=== PATIENT | male | born 1950 | race Caucasian/White ===

== ENCOUNTER 2016-12-15 18:51 | Inpatient (IN) | payer OTHER ==
--- NOTE | 2016-12-15 18:54 | PDOC ---
History of Present Illness - History of Present Illness Initial Comments: 12/15/16 19:37 Patient is a 66 year old male with significant medical hx of liver transplant, HTN, DM, CVA, and CAD brought in by EMS who is presenting to the ED with left facial droop and slurred speech. The patient was last known well today at 6:15 PM. He was sitting on the computer and when he turned to say something to his , she noticed his speech was slurred with left sided facial droop. Patient denies any facial numbness or tingling. He was brought in and seen by ED physician at 6:50 PM. Denies headache, dizziness, weakness, numbness/tingling, or visual changes. PCP: Chito Martino MD <Kimmy Saeed - Last Filed: 12/15/16 20:53> <Divya Valera - Last Filed: 12/17/16 21:25> - General Chief Complaint: CVA/TIA Stated Complaint: STROKE Past History <Kimmy Saeed - Last Filed: 12/15/16 20:53> <Divya Valera - Last Filed: 12/17/16 21:25> - Past Medical History Allergies/Adverse Reactions: Allergies Allergy/AdvReac Type Severity Reaction Status Date / Time No Known Allergies Allergy Verified 12/15/16 18:54 Home Medications: Ambulatory Orders Alendronate Na [Fosamax] 70 mg PO DAILY 12/15/16 Aspirin [ASA -] 81 mg PO DAILY 12/15/16 Cyclosporine 75 mg PO DAILY 12/15/16 Glimepiride 2 mg PO DAILY 12/15/16 Metoprolol Tartrate [Lopressor -] 25 mg PO DAILY 12/15/16 Ursodiol 500 mg PO DAILY 12/15/16 Review of Systems - Review of Systems Comments:: 12/15/16 19:41 CONSTITUTIONAL: Absent: fever, chills, diaphoresis, generalized weakness, malaise, loss of appetite HEENT: Absent: rhinorrhea, nasal congestion, throat pain, throat swelling, difficulty swallowing, mouth swelling, ear pain, eye pain, visual changes CARDIOVASCULAR: Absent: chest pain, syncope, palpitations, irregular heart rate, lightheadedness , peripheral edema RESPIRATORY: Absent: cough, shortness of breath, dyspnea with exertion, orthopnea, wheezing, stridor, hemoptysis GASTROINTESTINAL: Absent: abdominal pain, abdominal distension, nausea, vomiting, diarrhea, constipation, melena, hematochezia GENITOURINARY: Absent: dysuria, frequency, urgency, hesitancy, hematuria, flank pain, genital pain MUSCULOSKELETAL: Absent: myalgia, arthralgia, joint swelling SKIN: Absent: rash, itching, pallor HEMATOLOGIC/IMMUNOLOGIC: Absent: easy bleeding, easy bruising, lymphadenopathy, frequent infections ENDOCRINE: Absent: unexplained weight gain, unexplained weight loss, heat intolerance, cold intolerance NEUROLOGIC: Present: slurred speech, left facial droop Absent: headache, focal weakness or paresthesia, dizziness, unsteady gait, seizure, mental status changes, bladder or bowel incontinence. PSYCHIATRIC: Absent: anxiety, depression, suicidal or homicidal ideation, hallucinations <Kimmy Saeed - Last Filed: 12/15/16 20:53> *Physical Exam - Vital Signs Last Vital Signs Temp Pulse Resp BP Pulse Ox 98.0 F 80 18 118/88 96 12/15/16 19:25 12/15/16 18:54 12/15/16 18:54 12/15/16 18:54 12/15/16 18:54 - Physical Exam Comments: 12/15/16 20:10 GENERAL: Well developed, well nourished. Awake and alert. No acute distress. HEENT: Normocephalic, atraumatic. PERRLA, EOMI. No conjunctival pallor. Sclera are non- icteric. Moist mucous membranes. Oropharynx is clear. NECK: Supple. Full ROM. No JVD. Carotid pulses 2+ and symmetric, without bruits. No thyromegaly. No lymphadenopathy. CARDIOVASCULAR: Regular rate and rhythm. No murmurs, rubs, or gallops. Distal pulses are 2+ and symmetric. PULMONARY: No evidence of respiratory distress. Lungs clear to auscultation bilaterally. No wheezing, rales or rhonchi. ABDOMINAL: Soft. Non-tender. Non-distended. No rebound or guarding. No organomegaly. Normoactive bowel sounds. MUSCULOSKELETAL: Normal range of motion at all joints. No bony deformities or tenderness. No CVA tenderness. EXTREMITIES: No cyanosis. No clubbing. No edema. No calf tenderness. SKIN: Warm and dry. Normal capillary refill. No rashes. No jaundice. NEUROLOGICAL: Alert, awake, appropriate. Slurred speech. Left sided facial droop. Passed swallow test. No extremity weakness. No numbness or tingling. Normal speech. Gait is normal without ataxia. PSYCHIATRIC: Cooperative. Good eye contact. Appropriate mood and affect. <Kimmy Saeed - Last Filed: 12/15/16 20:53> NIH Stroke Scale - Last Known Well Date/Time & Onset Date Last Known Well: 12/15/16 Time Last Known Well: 18:15 - Initial Evaluation Level of consciousness: Alert Ask patient the month and their age: Answers both correctly Ask patient to open & close eyes; make fist and let go: Obeys both correctly Best gaze (horizontal eye movement): Normal Visual field testing: No visual field loss Facial paresis (Show teeth/raise eyebrows/close eyes tight): Minor paralysis ( flattened nasolabial fold, asymmetry on smiling) Motor Function: Left Arm: Normal Motor Function: Right Arm: Normal (extends arm 90 (or 45) degrees for 10 seconds without drift Motor Function: Left Leg: Normal (extends leg 30 degrees for 5 seconds without drift) Motor Function: Right Leg: Normal (extends leg 30 degrees for 5 seconds without drift) Limb Ataxia: No ataxia Sensory(Use pinprick test arms,legs,trunk,face/side to side): Normal Best language (Describe picture, name items, read sentences): No Aphasia Dysarthria (read several words): Mild to moderate slurring of words Extinction and Inattention: No abnormality - Total Score NIH Stroke Scale Score: 2 <Divya Valera - Last Filed: 12/17/16 21:25> tPA Exclusion Checklist 0-3hr - Time Elapsed Date last known well: 12/15/16 Time last known well: 18:15 Elaspsed time: 2 Day(s) and 3 Hour(s) and 9 Minutes - Thrombolytic Therapy Candidate Is the patient eligible for Thrombolytic Therapy?: Yes - Exclusion Criteria 0-3hr SBP greater than 185 or DBP greater than 110mmHg despite tx: No Recent IC/spinal surgery,head trauma or stroke w/in last 3mo: No Hx of previous IC hemorrhage, IC neoplasm, AVM or aneurysm: No Active internal bleeding: No Blding diathesis(low plt ct, inc PTT,INR>1.7 or use of NOAC): No Symptoms suggest subarachnoid hemorrhage: No CT demonstrates multilobar infarct(>1/3 cerebral hemiphere): No Arterial puncture at noncompressible site in previous 7 days: No Blood glucose concentration less than 50mg/dL (2.7mmol/L): No - Relative Exclusion Criteria 0-3h Life expectancy <1yr/severe co-morbid illness/INVESTIGATIVE AGENT on admit: No : No Patient/family refused: No Rapid improvement: Yes Stroke severity too mild: Yes Recent acute CO (w/in previous 3 months): No Seizure at onset with postictal residual neuro impairments: No Major surgery or serious trauma w/in previous 14 days: No Recent GI or hemorrhage (w/in previous 21 days): No - Ineligibility reason(s) Reasons No tPA given: See reason(s) noted above (Dr Summers,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 His was with him first on the computer and when he went to turn to speak to her, his words were slurred. He is alert and oriented 3, moving all his extremities purposefully. NIH stroke scale is 2. Due to his slight word slurring and mild facial droop -. I asked the patient how speech was and He said it was slightly improved from an hour ago -tpa obtainbed from [facility] 12/15/16 20:05 Dr. 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 and no TPA will be given 12/17/16 21:24 <Divya Valera - Last Filed: 12/17/16 21:25> Discharge Disposition <Kimmy Saeed - Last Filed: 12/15/16 20:53> - Discharge Dispostion Admit: Yes <Divya Valera - Last Filed: 12/17/16 21:25> - Diagnosis Facial droop, Slurred speech - Referrals ED Treatment Course - LABORATORY CBC & Chemistry Diagram: 12/15/16 19:10 12/15/16 19:10 - RADIOLOGY Radiograph Interpretation: 12/15/16 19:29 Spreader Operator: ([email or web address]) Report Date: 12/15/2016 18:55:00 Report Status: Addendum Begin of Report Content Referring Physician: Divya Hussein Stroke protocol results discussed with Dr. Valera at 7:11pm. THIS DOCUMENT HAS BEEN ELECTRONICALLY SIGNED Abdulkadir Askew MD 12/15/2016 19:15 EST M.D. Please call Imaging Mobile Security Specialist [phone] with questions. PREVIOUS REPORT: Referring Physician: Divya Valera Patient Name: Nitish Hussein THIS IS A PRELIMINARY REPORT FROM [facility]OS[facility] MANAGER EXAM: CT head without contrast IMAGES: 73 DATE OF EXAM: 2016-12-15 18:55:46.0 REASON FOR EXAM: Rule out stroke COMPARISON: None. FINDINGS: There is cerebral atrophy. Chronic microvascular ischemic changes are noted. There are small chronic appearing right parietal and posterior parietal CVAs. No acute intracranial hemorrhage or acute infarction. The visualized aspect of the paranasal sinuses and mastoid air cells are remarkable for minimal right ethmoid chronic sinus changes. No acute fracture. THIS DOCUMENT HAS BEEN ELECTRONICALLY SIGNED Abdulkadir Askew MD 12/15/2016 19:12 EST M.D. Please call Imaging Mobile Security Specialist [phone] with questions. End of Report Content Spreader Operator: ([email or web address]) Report Date: 12/15/2016 18:55:00 Report Status: Preliminary Begin of Report Content Referring Physician: Divya Valera Patient Name: Nitish Hussein THIS IS A PRELIMINARY REPORT FROM [facility]NAGER EXAM: CT head without contrast IMAGES: 73 DATE OF EXAM: 2016-12-15 18:55:46.0 REASON FOR EXAM: Rule out stroke COMPARISON: None. FINDINGS: There is cerebral atrophy. Chronic microvascular ischemic changes are noted. There are small chronic appearing right parietal and posterior parietal CVAs. No acute intracranial hemorrhage or acute infarction. The visualized aspect of the paranasal sinuses and mastoid air cells are remarkable for minimal right ethmoid chronic sinus changes. No acute fracture. THIS DOCUMENT HAS BEEN ELECTRONICALLY SIGNED Abdulkadir Askew MD 12/15/2016 19:12 EST M.D. Please call Imaging Mobile Security Specialist [phone] with questions. End of Report Content - Consult/PCP Time Called: 19:30 (Requested aspirin and lipitor to be given.) Case discussed with personal care physician: Annie Abraham <Kimmy Saeed - Last Filed: 12/15/16 20:53> - LABORATORY CBC & Chemistry Diagram: 12/17/16 05:35 12/17/16 05:35 <Divya Valera - Last Filed: 12/17/16 21:25> Attestations - Attestations 12/15/16 19:31 Documentation prepared by Kimmy Saeed, acting as medical assistant cardiology for Divya Valera MD. <Kimmy Saeed - Last Filed: 12/15/16 20:53>
[2016-12-15] MEDS ORDERED: SODIUM CHLORIDE 1,000 ML IV SCH ×2 (19:00→21:00)
[2016-12-15 19:33] LABS: BASOPHIL 1.4 % (0-2.0); EOSINOPHIL 7.5 % (0-4.5); MCH 31.9 pg (25.7-33.7); MCHC 33.5 g/dl (32.0-35.9); MEAN CELL VOLUME 95.1 fl (80-96); MEAN PLT VOLUME 9.4 fl (7.5-11.1); NEUTROPHILS 40.3 % (42.8-82.8); PLATELET COUNT 201 K/MM3 (134-434); RDW 12.8 % (11.9-15.9); WHITE BLOOD COUNT 10.6 K/mm3 (4.0-10.0)
[2016-12-15] MEDS ORDERED: ATORVASTATIN CA 80 MG TABLET (FP) PO ONE (19:33)
[2016-12-15] MEDS ORDERED: ASPIRIN 81 MG CHEWABLE TABLETS PO ONE (19:33)
[2016-12-15] MEDS ORDERED: ASPIRIN 81 MG CHEWABLE TABLETS ONE (19:35)
[2016-12-15] MEDS ORDERED: ATORVASTATIN CA 80 MG TABLET (FP) ONE (19:35)
[2016-12-15 19:47] LABS: INR 1.04 (0.82-1.09); PROTHROMBIN TIME (PATIENT) 11.5 SEC (9.98-11.88)
[2016-12-15] MEDS ORDERED: ALTEPLASE 100MG 100 MG IVPB ONE (19:59)
[2016-12-15 20:00] LABS: ALBUMIN 3.7 g/dl (3.4-5.0); ALK PHOS 58 U/L (45-117); ANION GAP 8 (8-16); BILIRUBIN,TOTAL 0.6 mg/dL (0.2-1.0); CALCIUM 9.2 mg/dL (8.5-10.1); CHOLESTEROL 164 mg/dL (50-200); CO2 28 mmol/L (21-32); COCKROFT - GAULT 68.98; CREATININE 1.1 mg/dL (0.7-1.3); GLUCOSE,RANDOM 211 mg/dL (74-106); LDL CHOLESTEROL (ONLY SJRH) 81 mg/dL (5-100); SGOT/AST 23 U/L (15-37); SGPT/ALT 21 U/L (12-78); TOT PROT 7.2 g/dl (6.4-8.2); TROPONIN I < 0.02 ng/ml (0.00-0.05)
[2016-12-15] MEDS ORDERED: predniSONE 20 MG TABLET (UD) PO ONE (20:07)
[2016-12-15] MEDS ORDERED: predniSONE 20 MG TABLET (UD) ONE (20:14)
--- NOTE | 2016-12-15 20:22 | CON.NEURO ---
Consult - Alcohol/Substance Use Hx Alcohol Use: No - Smoking History Smoking history: Never smoked Home Medications - Allergies Allergies/Adverse Reactions: Allergies Allergy/AdvReac Type Severity Reaction Status Date / Time No Known Allergies Allergy Verified 12/15/16 18:54 Physical Exam-Neuro Vital Signs: Vital Signs Temperature 98.0 F 12/15/16 19:25 Pulse Rate 80 12/15/16 18:54 Respiratory Rate 18 12/15/16 18:54 Blood Pressure 160/97 12/15/16 20:11 O2 Sat by Pulse Oximetry (%) 96 12/15/16 18:54 Labs: CBC, BMP 12/15/16 19:10 12/15/16 19:10 INR, PTT INR 1.04 (0.82-1.09) 12/15/16 19:10 NIH Stroke Scale - Total Score NIH Stroke Scale Score: 0 Imaging - Results Cat Scan: Report Reviewed Assessment/Plan cc left face droopiness and slurring of speech 66 year old male history of liver transplant , htn dm cad and is taking aspirin , statin at home. He was working on computer and noticed that there was left facial droopiness and voice was slurred . He denies any arm weakness or numbness, no headache . He is able to talk and understand. no seizures no fever or trauma or cancer. Past Medical History , medication and allergies are reviewed in chart Neurological Exam BP was normal alert oriented x 3, speech is slurred there is lmn type of facial palsy, and eomi no motor weakness or sensory loss Ct showed white matter disease and old ischemic lesion ( clinically never had stroke ASSESSMENT 66 year old male came with left facial droopiness and slurring of speech and found to have left LMN type of facial palsy , bp was normal. there is no other focal neuro sy mptoms and exam is normal. nih scor ei s2 UNLIKELY TO BE STROKE Plan -- suggest to give prednisone 40 mg po qd for five days and valtrex 1 gm tid for seven days - side effect of steroid discussed with patient - unlikely to be stroke , discussed with family and ed doctor and not a candidate for tpa -- suggest to do mri of brain to rule out ischemic stroke -- follow up with me outpatient once mri is negative thanks for consult Epifanio Lux MD Neurology Attending
--- NOTE | 2016-12-15 20:33 | PN ---
<Chaitanya Armendariz - Last Filed: 12/15/16 20:33> Teaching Attending Note Name of Resident: Tracy Almazan ATTENDING PHYSICIAN STATEMENT I saw and evaluated the patient. I reviewed the resident's note and discussed the case with the resident. I agree with the resident's findings and plan as documented. SUBJECTIVE: OBJECTIVE: ASSESSMENT AND PLAN: <Jamal Randall - Last Filed: 12/15/16 21:56> Teaching Attending Note ATTENDING PHYSICIAN STATEMENT I saw and evaluated the patient. I reviewed the resident's note and discussed the case with the resident. I agree with the resident's findings and plan as documented. SUBJECTIVE: The patient is a 66 year old male with a significant past medical history of liver transplant, HTN, diabetes, CVA, and CAD, who presented to the emergency department today with left facial droop and slurred speech since 1849. Patient denied any facial numbness, tingling, dizziness, or visual changes. Patients had noticed slurred speech. In ED patient was found to have a stroke scale score of 2. OBJECTIVE: Last Vital Signs 3 Temp Pulse Resp BP Pulse Ox 98.0 F 80 18 160/97 96 12/15/16 19:25 12/15/16 18:54 12/15/16 18:54 12/15/16 20:11 12/15/16 18:54 Physical Exam: GEN: Awake Alert and [place] x3 NAD HEENT: NCAT, PERRL CARD: RRR, S1 S2 RESP: CTAB ABD: NT, BWS x4 EXT: - CCE NUERO: (+) Cranial nerves 2-12 intact left facial droop Labs: CBCD 3 WBC 10.6 K/mm3 (4.0-10.0) H 12/15/16 19:10 RBC 4.44 M/mm3 (4.00-5.60) 12/15/16 19:10 Hgb 14.1 GM/dL (11.7-16.9) 12/15/16 19:10 Hct 42.2 % (35.4-49) 12/15/16 19:10 MCV 95.1 fl (80-96) 12/15/16 19:10 MCHC 33.5 g/dl (32.0-35.9) 12/15/16 19:10 RDW 12.8 % (11.9-15.9) 12/15/16 19:10 Plt Count 201 K/MM3 (134-434) 12/15/16 19:10 MPV 9.4 fl (7.5-11.1) 12/15/16 19:10 CMP 3 Sodium 143 mmol/L (136-145) 12/15/16 19:10 Potassium 3.5 mmol/L (3.5-5.1) 12/15/16 19:10 Chloride 107 mmol/L (98-107) 12/15/16 19:10 Carbon Dioxide 28 mmol/L (21-32) 12/15/16 19:10 Anion Gap 8 (8-16) 12/15/16 19:10 BUN 28 mg/dL (7-18) H 12/15/16 19:10 Creatinine 1.1 mg/dL (0.7-1.3) 12/15/16 19:10 Creat Clearance w eGFR > 60 (>60) 12/15/16 19:10 Calcium 9.2 mg/dL (8.5-10.1) 12/15/16 19:10 Total Bilirubin 0.6 mg/dL (0.2-1.0) 12/15/16 19:10 AST 23 U/L (15-37) 12/15/16 19:10 ALT 21 U/L (12-78) 12/15/16 19:10 Alkaline Phosphatase 58 U/L (45-117) 12/15/16 19:10 Total Protein 7.2 g/dl (6.4-8.2) 12/15/16 19:10 Albumin 3.7 g/dl (3.4-5.0) 12/15/16 19:10 Imaging: EXAM: CT head without contrast IMAGES: 73 DATE OF EXAM: 2016-12-15 18:55:46.0 REASON FOR EXAM: Rule out stroke COMPARISON: None. FINDINGS: There is cerebral atrophy. Chronic microvascular ischemic changes are noted. There are small chronic appearing right parietal and posterior parietal CVAs. No acute intracranial hemorrhage or acute infarction. The visualized aspect of the paranasal sinuses and mastoid air cells are remarkable for minimal right ethmoid chronic sinus changes. No acute fracture. THIS DOCUMENT HAS BEEN ELECTRONICALLY SIGNED Abdulkadir Askew MD EXAM: ECG. Impression: Vent rate at 78 bpm. Normal sinus rhythm. Normal ECG. ASSESSMENT AND PLAN: The patient is a 66 year old male with a significant past medical history of liver transplant, HTN, diabetes, CVA, and CAD, who presented to the emergency department today with left facial droop and slurred speech since, found to have possible yoder's palsy being admitted for stroke rule out 1. CVA TIA - Continue aspirin - Check lipid panel - Start statin - Follow up A1C - Check tsh - Check B12 - MRI brain without contrast - ECHO - Carotid ultrasound - ECG - Troponins - Monitor on Tele 2. Yoder's Palsy - Continue with Prednisone 60 mg daily - Continue Valacyclovir 3. Diabetes - Sliding scale - Hold glimepiride 4. History of liver transplant - Continue Cyclosporine - Check levels 5. CAD - Continue home medications 6. DVT PPX-low risk - SCDs Place in stroke tele. Documentation prepared by Jamal Randall, acting as medical laboratory assistant for Dr. Chaitanya Armendariz MD
[2016-12-15 20:55] LABS: URINE APPEARANCE CLEAR; URINE BILIRUBIN NEGATIVE (NEGATIVE); URINE COLOR STRAW; URINE GLUCOSE (UA) 3+ (NEGATIVE); URINE KETONE NEGATIVE (NEGATIVE); URINE LEUK ESTERASE NEGATIVE (NEGATIVE); URINE NITRITE NEGATIVE (NEGATIVE); URINE PROTEIN NEGATIVE (NEGATIVE); URINE UROBILINOGEN NEGATIVE E.U./dl (0.2-1.0)
[2016-12-15 21:00] LABS: URINE BLOOD 1+ (NEGATIVE); URINE MUCUS RARE; URINE RBC 5 /hpf (0-3); URINE WBC <1 /hpf (3-5)
--- NOTE | 2016-12-15 21:45 | HP ---
CHIEF COMPLAINT: left facial droop PCP: Chito Martino MD HISTORY OF PRESENT ILLNESS: 66 year old male with PMH of NIDDM, HTN, CAD s/p many year sago, liver transplant (due to hepatitis C infection in ?, on daily cyclosporine), presents to ER with family due to left sided facial droop and aphasia that started at 6:15pm while he was sitting at computer. Patient denies headache, dysphagia, tingling, numbness, extremity weakness, unsteady gait. He also denies chest pain, palpitations, sob. Patient does mention that he was been having upper respiratory symptoms the past two weeks, including nasal congestion , cough, no fever. He did not see his primary for this. Patient denies previous tick bites or travel. He was brought in and seen by ED physician at 6:50 PM. Stroke protocol was activated and head CT was done. Patient was seen neurologist in the ED, he did not feel this was a stroke, alteplase was not given. Full dose aspirin was given. Patient was given steroids and valacyclovir for treatment of Hall/s palsy. Recent Travel: no PAST MEDICAL HISTORY: HEpC, HTN, DM, CAD PAST SURGICAL HISTORY: Liver transplant, splenectomy, stent Social History: Smoking:no Alcohol:no Drugs: no Family History: Allergies No Known Allergies Allergy (Verified 12/15/16 18:54) HOME MEDICATIONS: Home Medications Medication Instructions Recorded Alendronate Na [Fosamax] 70 mg PO DAILY 12/15/16 Aspirin [ASA -] 81 mg PO DAILY 12/15/16 Cyclosporine 75 mg PO DAILY 12/15/16 Glimepiride 2 mg PO DAILY 12/15/16 Metoprolol Tartrate [Lopressor -] 25 mg PO DAILY 12/15/16 Ursodiol 500 mg PO DAILY 12/15/16 REVIEW OF SYSTEMS CONSTITUTIONAL: Absent: fever, chills, diaphoresis, generalized weakness, malaise, loss of appetite, weight change HEENT: Positive: rinorrhea, nasal congestion Absent: throat pain, throat swelling, difficulty swallowing, mouth swelling, ear pain, eye pain, visual changes CARDIOVASCULAR: Absent: chest pain, syncope, palpitations, irregular heart rate, lightheadedness , peripheral edema RESPIRATORY: Positive: cough Absent: shortness of breath, dyspnea with exertion, orthopnea, wheezing, stridor, hemoptysis GASTROINTESTINAL: Absent: abdominal pain, abdominal distension, nausea, vomiting, diarrhea, constipation, melena, hematochezia GENITOURINARY: Absent: dysuria, frequency, urgency, hesitancy, hematuria, flank pain, genital pain MUSCULOSKELETAL: Absent: myalgia, arthralgia, joint swelling, back pain, neck pain SKIN: Positive: itching anterior chest Absent: rash, pallor HEMATOLOGIC/IMMUNOLOGIC: Absent: easy bleeding, easy bruising, lymphadenopathy, frequent infections ENDOCRINE: Absent: unexplained weight gain, unexplained weight loss, heat intolerance, cold intolerance NEUROLOGIC: POsitiveL left facal droop, Absent: headache, focal weakness or paresthesias, dizziness, unsteady gait, seizure, mental status changes, bladder or bowel incontinence PSYCHIATRIC: Absent: anxiety, depression, suicidal or homicidal ideation, hallucinations. PHYSICAL EXAMINATION Vital Signs - 24 hr 12/15/16 12/15/16 12/15/16 18:54 19:25 20:11 Temperature 98.0 F Pulse Rate 80 Respiratory 18 Rate Blood Pressure 118/88 Blood Pressure 160/97 [Right Arm] O2 Sat by Pulse 96 Oximetry (%) GENERAL: Awake, alert, and fully oriented, frustrated due to difficulty speaking HEAD: Normal with no signs of trauma. EYES: Pupils equal, round and reactive to light, extraocular movements intact, sclera anicteric, conjunctiva clear. No lid lag. EARS, NOSE, THROAT:oropharynx clear without exudates. Moist mucous membranes. NECK: Normal range of motion, supple without lymphadenopathy, JVD, or masses. LUNGS: Breath sounds equal, clear to auscultation bilaterally. No wheezes, and no crackles. No accessory muscle use. HEART: Regular rate and rhythm, normal S1 and S2 without murmur, rub or gallop. ABDOMEN: Soft, nontender, not distended, normoactive bowel sounds, no guarding, no rebound, no masses. No hepatomegaly or splenomegaly. MUSCULOSKELETAL: Normal range of motion at all joints. No bony deformities or tenderness. No CVA tenderness. UPPER EXTREMITIES: 2+ pulses, warm, well-perfused. No cyanosis. No clubbing. No peripheral edema. LOWER EXTREMITIES: 2+ pulses, warm, well-perfused. No calf tenderness. No peripheral edema. NEUROLOGICAL: Cranial nerves II-XII intact. Aphasia, left facial droop, left tongue deviation. Normal gait. motor strength 5/5 all extremities, sensation intact , left eyelid raise more weak on the left when compared tot he right; i was able to open left eyelid when told to close eyes PSYCHIATRIC: Cooperative. Good eye contact. Appropriate mood and affect. SKIN: Warm, dry, normal turgor, no rashes or lesions noted, normal capillary refill. CBCD WBC 10.6 K/mm3 (4.0-10.0) H 12/15/16 19:10 RBC 4.44 M/mm3 (4.00-5.60) 12/15/16 19:10 Hgb 14.1 GM/dL (11.7-16.9) 12/15/16 19:10 Hct 42.2 % (35.4-49) 12/15/16 19:10 MCV 95.1 fl (80-96) 12/15/16 19:10 MCHC 33.5 g/dl (32.0-35.9) 12/15/16 19:10 RDW 12.8 % (11.9-15.9) 12/15/16 19:10 Plt Count 201 K/MM3 (134-434) 12/15/16 19:10 MPV 9.4 fl (7.5-11.1) 12/15/16 19:10 CMP Sodium 143 mmol/L (136-145) 12/15/16 19:10 Potassium 3.5 mmol/L (3.5-5.1) 12/15/16 19:10 Chloride 107 mmol/L (98-107) 12/15/16 19:10 Carbon Dioxide 28 mmol/L (21-32) 12/15/16 19:10 Anion Gap 8 (8-16) 12/15/16 19:10 BUN 28 mg/dL (7-18) H 12/15/16 19:10 Creatinine 1.1 mg/dL (0.7-1.3) 12/15/16 19:10 Creat Clearance w eGFR > 60 (>60) 12/15/16 19:10 Random Glucose 211 mg/dL (74-106) H 12/15/16 19:10 Calcium 9.2 mg/dL (8.5-10.1) 12/15/16 19:10 Total Bilirubin 0.6 mg/dL (0.2-1.0) 12/15/16 19:10 AST 23 U/L (15-37) 12/15/16 19:10 ALT 21 U/L (12-78) 12/15/16 19:10 Alkaline Phosphatase 58 U/L (45-117) 12/15/16 19:10 Total Protein 7.2 g/dl (6.4-8.2) 12/15/16 19:10 Albumin 3.7 g/dl (3.4-5.0) 12/15/16 19:10 CARDIAC ENZYMES Creatine Kinase 154 IU/L (39-308) 12/15/16 19:10 Troponin I < 0.02 ng/ml (0.00-0.05) 12/15/16 19:10 Imaging: EXAM: CT head without contrast IMAGES: 73 DATE OF EXAM: 2016-12-15 18:55:46.0 REASON FOR EXAM: Rule out stroke COMPARISON: None. FINDINGS: There is cerebral atrophy. Chronic microvascular ischemic changes are noted. There are small chronic appearing right parietal and posterior parietal CVAs. No acute intracranial hemorrhage or acute infarction. The visualized aspect of the paranasal sinuses and mastoid air cells are remarkable for minimal right ethmoid chronic sinus changes. No acute fracture. THIS DOCUMENT HAS BEEN ELECTRONICALLY SIGNED Abdulkadir Askew MD EXAM: ECG. Impression: Vent rate at 78 bpm. Normal sinus rhythm. Normal ECG. ASSESSMENT/PLAN: 66 year old male with HTN, DM, CAD, presents to ER with left facial droop and aphasia. Neurology assessed in ER, patient likely to have Hall's palsy vs stroke. Patient admitted to telemetry, stroke protocol initiated. #Left facial droop secondary to Hall's Palsy: -prednisone 40mg po daily x 5 days -valacyclovir 1,000mg tid #r/o stroke/TIA -stroke protocol initiated/order set used -stroke head CT -aspirin 325mg po ; then 81mg daily -atorvastatin 80mg po HS daily -brain MRI without contrast -carotid doppler -echocardiogram -neuro checks -speech eval -lipid panel, tsh -telemetry -physical therapy -neurology consult #HTN: -metoprolol 25mg daily #diabetes mellitus type II -insulin SS -bgm achs -hemoglobin A1C #S/p liver transplant: -on cyclosporine 500mg qd -chk levels FEN: Fluids: Electrolytes: Diet: diabetic VTE: ambulating; apply scds; reevaluate need for VTE prophylaxis tomorrow Disposition: admit to tele; f/u studies Problem List - Problem (1) Facial droop Code(s): R29.810 - FACIAL WEAKNESS (2) Slurred speech Code(s): R47.81 - SLURRED SPEECH (3) Hall's palsy Code(s): G51.0 - HALL'S PALSY (4) HTN (hypertension) Code(s): I10 - ESSENTIAL (PRIMARY) HYPERTENSION (5) Diabetes 1.5, managed as type 2 Code(s): E10.9 - TYPE 1 DIABETES MELLITUS WITHOUT COMPLICATIONS (6) CAD (coronary artery disease) Code(s): I25.10 - ATHSCL HEART DISEASE OF [place] CORONARY ARTERY W/O ANG PCTRS (7) Hx of liver transplant Code(s): Z94.4 - LIVER TRANSPLANT STATUS Visit type - Emergency Visit Emergency Visit: Yes ED Registration Date: 12/15/16 Care time: The patient presented to the Emergency Department on the above date and was hospitalized for further evaluation of their emergent condition. - New Patient This patient is new to me today: Yes Date on this admission: 12/16/16 - Critical Care Critical Care patient: No
[2016-12-15] MEDS ORDERED: valACYclovir HCL 1000 MG TABLET PO SCH (22:00)
[2016-12-15] MEDS: cycloSPORINE MICROEMULSION (MODIFIED) 25 MG CAPSULE PO SCH ×2 (22:01→22:02)
[2016-12-15] MEDS: valACYclovir HCL 500 MG TABLET (FP) PO SCH (22:02)
[2016-12-16] MEDS: INSULIN SLIDING SCALE (NOVOLOG) 1 VIAL SQ SCH ×5 (01:49→21:08)
[2016-12-16] MEDS: valACYclovir HCL 500 MG TABLET (FP) PO SCH ×3 (06:20→21:09)
[2016-12-16 06:33] LABS: BASOPHIL 0.3 % (0-2.0); MCH 31.8 pg (25.7-33.7); MCHC 33.3 g/dl (32.0-35.9); MEAN CELL VOLUME 95.5 fl (80-96); MEAN PLT VOLUME 9.3 fl (7.5-11.1); NEUTROPHILS 91.9 % (42.8-82.8); PLATELET COUNT 219 K/MM3 (134-434); RDW 12.6 % (11.9-15.9); WHITE BLOOD COUNT 15.3 K/mm3 (4.0-10.0)
[2016-12-16 06:53] LABS: CALCIUM 8.7 mg/dL (8.5-10.1); COCKROFT - GAULT 68.98; CREATININE 1.1 mg/dL (0.7-1.3)
[2016-12-16 07:01] LABS: THYROID STIMULATING HORMONE 2.39 uIU/ml (0.358-3.74)
[2016-12-16] MEDS ORDERED: predniSONE 20 MG TABLET (UD) PO SCH (10:00)
[2016-12-16] MEDS ORDERED: ASPIRIN 81 MG CHEWABLE TABLETS PO SCH (10:00)
[2016-12-16] MEDS ORDERED: URSODIOL 300 MG PO SCH (10:00)
[2016-12-16] MEDS: METOPROLOL TARTRATE 25 MG TABLET (FP) PO SCH (10:18)
[2016-12-16] MEDS ORDERED: METOPROLOL TARTRATE 25 MG TABLET (FP) ONE (10:19)
[2016-12-16] MEDS ORDERED: predniSONE 20 MG TABLET (UD) ONE (10:19)
[2016-12-16] MEDS ORDERED: ASPIRIN 81 MG CHEWABLE TABLETS ONE (10:19)
--- NOTE | 2016-12-16 10:49 | CONSULT ---
Admitting History and Physical - Primary Care Physician PCP: Tracy Almazan - Admission History of Present Illness: Per Neurology: "BP was normal alert oriented x 3, speech is slurred there is lmn type of facial palsy, and eomi no motor weakness or sensory loss Ct showed white matter disease and old ischemic lesion ( clinically never had stroke ASSESSMENT 66 year old male came with left facial droopiness and slurring of speech and found to have left LMN type of facial palsy , bp was normal. there is no other focal neuro sy mptoms and exam is normal. nih scor ei s2 UNLIKELY TO BE STROKE" History Source: Patient, Family Member, Medical Record Limitations to Obtaining History: No Limitations - Smoking History Smoking history: Never smoked - Alcohol/Substance Use Hx Alcohol Use: No History - Admission Reason For Visit: FACIAL DROOP, SLURRED SPEECH - Diagnostics CT Scan: Report Reviewed (There is cerebral atrophy. Chronic microvascular ischemic changes are noted. There are small chronic appearing right parietal and posterior parietal CVAs. No acute intracranial hemorrhage or acute infarction.) - General Mental Status: Alert and Oriented, Awake and Alert, Able to Follow Commands Ability to Follow Directions: Excellent Head/Neck Control: WFL - Hearing Hearing: Functional Speech Evaluation - Communication Primary Language: MAORI Oral Expression Ability: Yes: Mild Impairment - Speech Production Able to Make Needs Known: Yes: WNL Intelligibility: Yes: Mildly Impaired - Speech Characteristics Voice Loudness: Normal Voice Pitch: Yes: Normal Voice Phonatory-based Quality: Yes: Normal Speech Pattern: Normal Speech Clarity: < 100% Nasal Resonance: Normal Articulation: Yes: Imprecise (slight) Rate of Speech: Intact - Language/Auditory Comprehension Follows: Yes: 2 Stage Simple Commands - Language/Verbal Expression Able to Respond to Simple Queries: Yes: WNL Able to Communicate Wants and Needs: Yes: WNL Functional Communication Status: Yes: WNL - Swallow Evaluation/Bedside Assessment Current Nutritional Intake: NPO Oral Secretions: Yes: Drooling (on left,when drinks from cup. Eliminated with straw drinking.) Dentition: Yes: Adequate Facial Symmetry at Rest: Facial Droop Left Facial Symmetry on Retraction: Facial Droop Left Sensation: Normal Jaw Position: Closed at Rest Against Resistance Opening: Normal Against Resistance Closing: Normal Pucker Lips: Droops Left Smile: Droops Left Lingual Movement: Deviates Left (? Not definitive) Lingual Movement Characteristics: Normal Velopharyngeal Movement: Normal Laryngeal Elevation: WFL Laryngeal Movement: Able to Palpate Rate of Intake: WFL Bolus Size: WFL Chewing: WFL Oral Prep Time: WFL A-P Transit: WFL Pocketing: None Timing of Swallow: WFL Coughing/Throat Clear: Yes (continuous thin liquid via straw) Recommendations - Speech Evaluation, Impression/Plan Impression: Pr is o x 3 and a good historian. No Aphasia or Dysarthria. Complete Left facial weakness. Dx of [place]'s Palsy. MRI pending. Tongue may be deviating to left?? upon protusion. Once I educated pt about this, he seemed to be correcting to midline? Clinical assessment not definitive. Language/ cognition intact. No hemianopsia. Able to read orally. Additionally, pt coughs/ clears throat responsively on continuous drinking of water from a straw, not noted without po intake. However, pt and report h/o throat clearing/cough/ phlegm production. PNA x 5 yrs ago - Dysphagia Impressions/Plan Dysphagia Impressions: Risk of Aspiration *Silent aspiration: cannot be R/O at bedside Recommendations: Modified Barium Swallow, Other (Pending MRI, r/o CVA.) - Recommendations Diet Consistency: Regular Medication Administration: Whole with water Liquids: Thin Liquids (single sips via straw. If cough,hold po until MBS)
[2016-12-16] MEDS ORDERED: PT OWN MED DRAWER 7, Y5N ONE ×2 (11:04→20:52)
[2016-12-16] MEDS: cycloSPORINE MICROEMULSION (MODIFIED) 25 MG CAPSULE PO SCH ×2 (11:06→21:10)
--- NOTE | 2016-12-16 11:44 | EKG ---
Test Reason : Blood Pressure : / mmHG Vent. Rate : 078 BPM Atrial Rate : 078 BPM P-R Int : 180 ms QRS Dur : 102 ms QT Int : 416 ms P-R-T Axes : 052 -03 039 degrees QTc Int : 474 ms NORMAL SINUS RHYTHM NORMAL ECG NO PREVIOUS ECGS AVAILABLE Confirmed by JOÃO NOGUERA MD ([id number]) on 12/16/2016 11:43:54 AM Referred By: Confirmed By:JOÃO NOGUERA MD
[2016-12-16] MEDS: URSODIOL 300 MG CAPSULE PO SCH (12:02)
[2016-12-16 16:30] VITALS: BMI 21.5
--- NOTE | 2016-12-16 16:36 | PN ---
Teaching Attending Note Name of Resident: Deena Kim ATTENDING PHYSICIAN STATEMENT I saw and evaluated the patient. I reviewed the resident's note and discussed the case with the resident. I agree with the resident's findings and plan as documented. SUBJECTIVE:continues to have slurred speech and L facial droop. was noticed by the when about to eat dinner. pt unaware if started earlier. has cough, rhinorrhea and sinus congestion 2 weeks earlier which self resolved and did not see PMD for. no similar episodes in the past. believes to have had cold sores in the past and chicken pox as a child but no shingles. denies CP, SOB,fever, chills, N/V/C/D OBJECTIVE: Last Vital Signs Temp Pulse Resp BP Pulse Ox 98.2 F 91 H 20 133/86 100 12/16/16 06:36 12/16/16 10:00 12/16/16 10:00 12/16/16 10:00 12/16/16 10:00 General NAD, slurred speech CV S1 S2 RRR no murmur/rub/gallop Lungs CTA B/l no wheezing/rales/rhonchi Neuro CN VII palsy on the L with tongue deviation to the R . strength and sensation grossly intact in all 4 extremities. no dysmetria negative heel to alvarado ASSESSMENT AND PLAN: 66yo M with PMH liver transplant 20 years ago, HTN, DM, and CAD presented to the ER with slurred speech and facial droop. Code Garcia activated in the ER 1. Facial droop- Eagle palsy vs CVA. NIHSS 2 on presentation. not given TPA per neuro as not believed to be CVA. initial CT negative, carotid doppler negative. MRI brain done today and result pending. started on steroids and valtrex for possible [place] palsy. short steroid course. will monitor for improvement. started on plavix. PT and swallow eval. will need speech therapy as outpatient. Neuro on board. cont asa 2. Luekocytosis- possible steroid effect. afebrile. no signs of infection. will hold abx therapy at this time 3. HTN- elevated. re-start metoprolol 4. Liver transplant- on cyclosporine. no complications since transplant. no OI. 5. DVT ppx- EAM
--- NOTE | 2016-12-16 16:57 | PN ---
Physical Exam: SUBJECTIVE: Patient seen and examined by me at bedside. Patient continues to have slurred speech but states it's much better now. On further questioning patient does report having cold symptoms about two weeks ago including cough, runny nose and congestion. Symptoms resolved on their own. Otherwise, patient denies fever, chills, nausea, vomiting, abdominal pain, chest pain, diarrhea, constipation, shortness of breath, palpitations. OBJECTIVE: Vital Signs Period Temp Pulse Resp BP Sys/Fraga Pulse Ox Last 24 Hr 98.0 F-98.2 F 71-98 16-20 120-151/68-97 95-100 GENERAL: The patient is awake, alert, and fully oriented, in no acute distress. HEAD: Normal with no signs of trauma. EYES: PERRL, extraocular movements intact, sclera anicteric, conjunctiva clear. ENT: oropharynx clear without exudates, moist mucous membranes. LUNGS: Breath sounds equal, clear to auscultation bilaterally, no wheezes, no crackles, no accessory muscle use. HEART: Regular rate and rhythm, S1, S2 without murmur, rub or gallop. ABDOMEN: Soft, nontender, nondistended, normoactive bowel sounds, no guarding. EXTREMITIES: No Peripheral edema. NEUROLOGICAL: Motor strength 5/5 throughout, sensory intact. Slurred Speech. CN II,III,IV,V, intact. CN VII palsy. Laboratory Results - last 24 hr 12/15/16 12/16/16 12/16/16 20:45 00:31 06:10 WBC 15.3 H D RBC 4.35 Hgb 13.8 Hct 41.5 MCV 95.5 MCHC 33.3 RDW 12.6 Plt Count 219 MPV 9.3 Neutrophils % 91.9 H D Lymphocytes % 5.1 L D Monocytes % 2.7 L D Eosinophils % 0.0 D Basophils % 0.3 Sodium Potassium Chloride Carbon Dioxide Anion Gap BUN Creatinine POC Glucometer [phone] Random Glucose Hemoglobin A1c % Calcium TSH Urine Color Straw Urine Appearance Clear Urine pH 6.0 Ur Specific [place] 1.015 Urine Protein Negative Urine Glucose (UA) 3+ H Urine Ketones Negative Urine Blood 1+ H Urine Nitrite Negative Urine Bilirubin Negative Urine Urobilinogen Negative Ur Leukocyte Esterase Negative Urine RBC 5 Urine WBC <1 Urine Mucus Rare 12/16/16 12/16/16 12/16/16 06:10 06:10 09:56 WBC RBC Hgb Hct MCV MCHC RDW Plt Count MPV Neutrophils % Lymphocytes % Monocytes % Eosinophils % Basophils % Sodium 142 Potassium 4.1 Chloride 108 H Carbon Dioxide 25 Anion Gap 9 BUN 32 H Creatinine 1.1 POC Glucometer [phone] Random Glucose 170 H Hemoglobin A1c % 6.5 H Calcium 8.7 TSH 2.39 Urine Color Urine Appearance Urine pH Ur Specific [place] Urine Protein Urine Glucose (UA) Urine Ketones Urine Blood Urine Nitrite Urine Bilirubin Urine Urobilinogen Ur Leukocyte Esterase Urine RBC Urine WBC Urine Mucus 12/16/16 11:26 WBC RBC Hgb Hct MCV MCHC RDW Plt Count MPV Neutrophils % Lymphocytes % Monocytes % Eosinophils % Basophils % Sodium Potassium Chloride Carbon Dioxide Anion Gap BUN Creatinine POC Glucometer 133 Random Glucose Hemoglobin A1c % Calcium TSH Urine Color Urine Appearance Urine pH Ur Specific [place] Urine Protein Urine Glucose (UA) Urine Ketones Urine Blood Urine Nitrite Urine Bilirubin Urine Urobilinogen Ur Leukocyte Esterase Urine RBC Urine WBC Urine Mucus Active Medications Generic Name Dose Route Start Last Admin Trade Name Marcelino PRN Reason Stop Dose Admin Aspirin 81 mg 12/16/16 10:00 12/16/16 10:18 Asa - PO 81 mg DAILY [facility] Administration Atorvastatin Calcium 80 mg 12/16/16 20:55 Lipitor - PO 12/16/16 20:56 DAILY ONE Cyclosporine 75 mg 12/15/16 22:00 12/16/16 11:06 Neoral (Nf) - PO Not Given BID [facility] Insulin Aspart 1 vial 12/15/16 22:00 12/16/16 12:02 Novolog Vial Sliding Scale - SQ Not Given ACHS [facility] Protocol Metoprolol Tartrate 25 mg 12/16/16 10:00 12/16/16 10:18 Lopressor - PO 25 mg DAILY [facility] Administration Prednisone 40 mg 12/16/16 10:00 12/16/16 10:18 Deltasone - PO 12/20/16 10:01 40 mg DAILY [facility] Administration Ursodiol 300 mg 12/16/16 10:00 12/16/16 12:02 Actigal - PO Not Given DAILY [facility] Valacyclovir HCl 1,000 mg 12/15/16 22:00 12/16/16 15:42 Valtrex - PO 1,000 mg TID [facility] Administration IMAGES: Head CT (12/15/16): No acute infarct or hemorrhage Chest X-ray (12/17/16): Negative for pneumonia, CHF, atelectasis, pleural effusions or pneumothorax Carotid Doppler (12/15/16): No evidence of significant stenosis ECHO (12/16/16): No abnormal wall motions Modified Barium Swallow (12/16/16): No aspiration noted ASSESSMENT/PLAN: Patient is a 66 year old male with a PMHx of HTN, DMII, and CAD who was brought in for left facial droop and Aphasia. Stroke protocol initiated and Neurologist evaluated patient. Patient likely to have [place] Palsy. Patient admitted for further monitoring and management. Left Facial Droop and Aphasia secondary to [place] Palsy Vs. Stroke -CT negative -No TPA given as per Neurologist. -Carotid Doppler Negative -Modified Barium swallow normal -ECHO negative -Prednisone 40mg PO daily started for five days -Valacyclovir 1000mg TID -Atorvastatin 80mg daily started -Brain MRI pending -Continue Neuro Checks -Continue physical therapy and speech therapy -Neurology consult appreciated Leukocytosis -Likely secondary to steroid use -WBC 15.3 -Patient afebrile with no signs of infection -Will continue to monitor off antibiotics HTN -Continue Metoprolol 25mg daily -Continue to monitor BP NIDDMII -A1C 6.5% -ISS -BGM S/P Liver Transplant -Continue Cyclosporine 500mg QD -Cyclosporine trough pending F/E/N -On no fluids -Electrolytes wnl -Diabetic diet Prophylaxis -Ambulates with no difficulty. SCD's for DVT Disposition -Brain MRI pending. Continue Physical Therapy and speech therapy. Likely remain overnight. Visit type - Emergency Visit Emergency Visit: Yes ED Registration Date: 12/15/16 Care time: The patient presented to the Emergency Department on the above date and was hospitalized for further evaluation of their emergent condition. - New Patient This patient is new to me today: Yes Date on this admission: 12/16/16 - Critical Care Critical Care patient: No
[2016-12-16] MEDS ORDERED: ATORVASTATIN CA 80 MG TABLET (FP) PO ONE (20:55)
[2016-12-16] MEDS ORDERED: INSULIN (NOVOLOG) ASPART 100 UNITS/ML 10ML VIAL ONE (21:05)
--- NOTE | 2016-12-17 00:34 | HOSP ---
Subjective - Review of Symptoms Events since last encounter: Paged regarding MRI brain results. MRI Brain shows: Moderate atrophy and extensive chronic microvascular ischemic changes. Multiple acute/subacute focal infarcts in the right insular and subinsular cortex, right frontal, parietal and occipital lobe. Informed pt of MRI brain showing stroke changes. Pt at this time feels better and states his symptoms are improving. He has improvement in speech and strength and no new focal neurological changes. PE -Improved eyelid strength, improved left hand group social worker strength 5/5 compared to yesterday. -Tongue deviation to left still present. -Equal sensation on B/L face and arms. -No new focal neurological deficits A/P Acute/subacute stroke -Consider starting on plavix or aggrenox in AM Physical Examination Vital Signs: Vital Signs Temperature 99.0 F 12/16/16 18:00 Pulse Rate 80 12/16/16 18:00 Respiratory Rate 18 12/16/16 18:00 Blood Pressure 150/90 12/16/16 18:00 O2 Sat by Pulse Oximetry (%) 95 12/16/16 10:50 Labs: CBC, BMP 12/16/16 06:10 12/16/16 06:10 Visit type - Emergency Visit Emergency Visit: Yes ED Registration Date: 12/15/16 Care time: The patient presented to the Emergency Department on the above date and was hospitalized for further evaluation of their emergent condition. - New Patient This patient is new to me today: Yes Date on this admission: 12/17/16 - Critical Care Critical Care patient: No
[2016-12-17] MEDS: valACYclovir HCL 500 MG TABLET (FP) PO SCH (05:54)
[2016-12-17] MEDS: INSULIN SLIDING SCALE (NOVOLOG) 1 VIAL SQ SCH ×4 (06:00→21:23)
[2016-12-17 06:53] LABS: MCH 32.8 pg (25.7-33.7); MCHC 34.7 g/dl (32.0-35.9); MEAN CELL VOLUME 94.4 fl (80-96); MEAN PLT VOLUME 9.5 fl (7.5-11.1); PLATELET COUNT 184 K/MM3 (134-434); RDW 12.7 % (11.9-15.9); WHITE BLOOD COUNT 20.2 K/mm3 (4.0-10.0)
[2016-12-17 07:22] LABS: CALCIUM 8.2 mg/dL (8.5-10.1); COCKROFT - GAULT 64.63; CREATININE 1.1 mg/dL (0.7-1.3)
[2016-12-17 08:57] LABS: PLATELET ESTIMATE ADEQUATE (NORMAL)
[2016-12-17] MEDS ORDERED: PT OWN MED DRAWER 7, Y5N ONE ×2 (09:29→21:13)
[2016-12-17] MEDS: CLOPIDOGREL BISULFATE 75 MG TABLET (FP) PO SCH (09:34)
[2016-12-17] MEDS: METOPROLOL TARTRATE 25 MG TABLET (FP) PO SCH (09:34)
[2016-12-17] MEDS: URSODIOL 300 MG CAPSULE PO SCH (09:35)
[2016-12-17] MEDS: cycloSPORINE MICROEMULSION (MODIFIED) 25 MG CAPSULE PO SCH ×2 (09:35→21:23)
--- NOTE | 2016-12-17 09:57 | PN ---
Physical Exam: SUBJECTIVE: Patient seen and examined by me at bedside. Overnight events noted. Patient's MRI showed multiple acute/subacute infarcts. Patient is aware. Patient reports his speech is much better. He is able to walk normally with no difficulty or complaints. Otherwise, patient denies fever, chills, nausea, vomiting, abdominal pain, dizziness, headaches, visual changes, weakness , shortness of breath, chest pain, palpitations. OBJECTIVE: Vital Signs Period Temp Pulse Resp BP Sys/Fraga Pulse Ox Last 24 Hr 97.9 F-99.0 F 80-94 18-20 133-162/82-92 95-100 GENERAL: The patient is awake, alert, and fully oriented, in no acute distress. HEAD: Normal with no signs of trauma. EYES: PERRL, extraocular movements intact, sclera anicteric, conjunctiva clear. ENT: oropharynx clear without exudates, moist mucous membranes. LUNGS: Breath sounds equal, clear to auscultation bilaterally, no wheezes, no crackles, no accessory muscle use. HEART: Regular rate and rhythm, S1, S2 without murmur, rub or gallop. ABDOMEN: Soft, nontender, nondistended, normoactive bowel sounds, no guarding. EXTREMITIES: No Peripheral edema. NEUROLOGICAL: Left facial droop. Dysarthia (improving) Motor strength 5/5 throughout, sensory intact. Slurred Speech. CN II,III,IV,V, intact. Laboratory Results - last 24 hr 12/15/16 12/16/16 12/16/16 20:45 06:10 09:56 WBC RBC Hgb Hct MCV MCHC RDW Plt Count MPV Neutrophils % Lymphocytes % Monocytes % Differential Comment Platelet Estimate Sodium Potassium Chloride Carbon Dioxide Anion Gap BUN Creatinine POC Glucometer [id number] Random Glucose Hemoglobin A1c % 6.5 H Calcium Ur Specific [place] 1.015 12/16/16 12/16/16 12/16/16 11:26 17:54 21:03 WBC RBC Hgb Hct MCV MCHC RDW Plt Count MPV Neutrophils % Lymphocytes % Monocytes % Differential Comment Platelet Estimate Sodium Potassium Chloride Carbon Dioxide Anion Gap BUN Creatinine POC Glucometer 133 244 219 Random Glucose Hemoglobin A1c % Calcium Ur Specific [place] 12/17/16 12/17/16 12/17/16 05:35 05:35 05:40 WBC 20.2 H D RBC 4.07 Hgb 13.3 Hct 38.4 MCV 94.4 MCHC 34.7 RDW 12.7 Plt Count 184 MPV 9.5 Neutrophils % 77.0 Lymphocytes % 8.0 D Monocytes % 5.0 D Differential Comment Manual diff done Platelet Estimate Adequate Sodium 143 Potassium 3.5 Chloride 108 H Carbon Dioxide 24 Anion Gap 11 BUN 33 H Creatinine 1.1 POC Glucometer 114 Random Glucose 98 D Hemoglobin A1c % Calcium 8.2 L Ur Specific [place] Active Medications Generic Name Dose Route Start Last Admin Trade Name Marcelino PRN Reason Stop Dose Admin Atorvastatin Calcium 80 mg 12/17/16 22:00 Lipitor - PO HS CAMELIA Clopidogrel Bisulfate 75 mg 12/17/16 10:00 12/17/16 09:34 Plavix - PO 75 mg DAILY CAMELIA Administration Cyclosporine 75 mg 12/15/16 22:00 12/17/16 09:35 Neoral (Nf) - PO 75 mg BID CAMELIA Administration Insulin Aspart 1 vial 12/15/16 22:00 12/17/16 06:00 Novolog Vial Sliding Scale - SQ Not Given ACHS [facility] Protocol Metoprolol Tartrate 25 mg 12/16/16 10:00 12/17/16 09:34 Lopressor - PO 25 mg DAILY CAMELIA Administration Ursodiol 300 mg 12/16/16 10:00 12/17/16 09:35 Actigal - PO 300 mg DAILY CAMELIA Administration IMAGES: Head CT (12/15/16): No acute infarct or hemorrhage Chest X-ray (12/17/16): Negative for pneumonia, CHF, atelectasis, pleural effusions or pneumothorax Carotid Doppler (12/15/16): No evidence of significant stenosis ECHO (12/16/16): No abnormal wall motions Modified Barium Swallow (12/16/16): No aspiration noted BRAIN MRI (12/16/16): Moderate atrophy and extensive chronic microvascular ischemic changes. Multiple acute/subacute focal infarcts in the right insular and subinsular cortex, right frontal, parietal and occipital lobe. ASSESSMENT/PLAN: Patient is a 66 year old male with a PMHx of HTN, DMII, and CAD who was brought in for left facial droop and Aphasia. Stroke protocol initiated and Neurologist evaluated patient. Patient likely to have [place] Palsy. Patient admitted for further monitoring and management. Left Facial Droop and Aphasia secondary to [place] Palsy Vs. Stroke -Brain MRI revealed multiple acute/subacute focal infarcts -Continue ASA 81mg -Continue Plavix 75mg -Prednisone and Valacyclovir Discontinue -Continue Atorvastatin 80mg daily -Continue Neuro Checks -Continue physical therapy and speech therapy -Neurology recommended HARSHAL -Cardiology consult placed -Will remain on cardiac monitoring overnight Leukocytosis -Likely secondary to steroid use -WBC >20 -Patient afebrile with no signs of infection -Will continue to monitor off antibiotics HTN -Continue Metoprolol 25mg daily -Continue to monitor BP NIDDMII -Hyperglycemia today, possibly due to steroids. Will monitor another night -A1C 6.5% -ISS -BGM S/P Liver Transplant -Continue Cyclosporine 500mg QD -Cyclosporine trough pending F/E/N -On no fluids -Electrolytes wnl -Diabetic diet Prophylaxis -Ambulates with no difficulty. SCD's for DVT Disposition -Continue Physical Therapy and speech therapy. Will remain overnight. Visit type - Emergency Visit Emergency Visit: Yes ED Registration Date: 12/15/16 Care time: The patient presented to the Emergency Department on the above date and was hospitalized for further evaluation of their emergent condition. - New Patient This patient is new to me today: No - Critical Care Critical Care patient: No
[2016-12-17] MEDS ORDERED: CLOPIDOGREL BISULFATE 75 MG TABLET (FP) PO SCH (10:00)
--- NOTE | 2016-12-17 11:01 | PN ---
Progress Note (short form) - Note Progress Note: cc left face droopiness and slurring of speech x symptoms started on december 15 66 year old male history of liver transplant , htn dm cad and is taking aspirin , statin at home. He was working on computer and noticed that there was left facial droopiness and voice was slurred . He denies any arm weakness or numbness, no headache . He is able to talk and understand. no seizures no fever or trauma or cancer. initial ct scan showed there is no acute fidings mri done yesterday showed there is multiple area of right hemispheric acute to subacute stroke in dwi imaging ( frontal , pareital and occipital lobe) clinically he improving and voice is better and droopiness is slightly better as per patient and family Past Medical History , medication and allergies are reviewed in chart Neurological Exam alert oriented x 3, speech is slurred there is lmn type of facial palsy, and eomi no motor weakness or sensory loss mri done yesterday showed there is multiple area of right hemispheric acute to subacute stroke in dwi imaging ( frontal , pareital and occipital lobe) ASSESSMENT 66 year old male came with left facial droopiness and slurring of speech and found to have left LMN type of facial palsy , mri shoed right hemispheric multivessel infarct ( subacute to acute ) given that he has LMN type of facial palsy , it it is possible that he has no bilateral innervation of upper part of face Plan -- stop valtrex and prednisone - switch to plavix and stop aspirin -- increase statin dose - carotid ultrasound was negative suggest to do HARSHAL if ok with primary team - dvt prophylaxis, speech eval -- thanks for consult, feel free to call me if you have any question Epifanio Lux MD Neurology Attending
--- NOTE | 2016-12-17 12:07 | PN ---
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 Intermittent cough. Had 1 dose of prednisone. Speech improving. Facial slight improvement. Reviewed and provided pt with several handouts concerning: Oral motor exercises Neuromuscular facilitation technigue of ice/massage of facial muscle Effortful swallow/Silvina/joe swallowing exercises Speech strategies/drills
--- NOTE | 2016-12-17 14:24 | CON.CARD ---
Consult Consult Specialty:: cardiology Reason for Consultation:: CVA - History of Present Illness Chief Complaint: Pt A&OX3; anxious, otherwise asymptomatic. at bedside. History of Present Illness: Patient is a 66 year old male with significant medical hx of liver transplant ( "after an accident-->bad blood transfusion"), HTN, DM, CVA, and CAD (hx [place] 2012- ->coronary stent, brought in by EMS who is presenting to the ED with left facial droop and slurred speech. The patient was last known well today at 6:15 PM. He was sitting on the computer and when he turned to say something to his , she noticed his speech was slurred with left sided facial droop. Patient denies any facial numbness or tingling. He was brought in and seen by ED physician at 6:50 PM. Denies headache, dizziness, weakness, numbness/tingling, or visual changes. 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 Home Medications - Allergies Allergies/Adverse Reactions: Allergies Allergy/AdvReac Type Severity Reaction Status Date / Time No Known Allergies Allergy Verified 12/15/16 18:54 - Home Medications Home Medications: Ambulatory Orders Alendronate Na [Fosamax] 70 mg PO DAILY 12/15/16 Aspirin [ASA -] 81 mg PO DAILY 12/15/16 Cyclosporine 75 mg PO DAILY 12/15/16 Glimepiride 2 mg PO DAILY 12/15/16 Metoprolol Tartrate [Lopressor -] 25 mg PO DAILY 12/15/16 Ursodiol 500 mg PO DAILY 12/15/16 Family Disease History - Family Disease History Family History: Denies Review of Systems - Review of Systems Constitutional: reports: Weakness Eyes: reports: No Symptoms HENT: reports: No Symptoms, Other (improvement in facial droop and slurred speech) Neck: reports: No Symptoms Cardiovascular: reports: No Symptoms Respiratory: reports: No Symptoms Neurological: reports: Change in Speech Endocrine: reports: No Symptoms Hematology/Lymphatic: reports: No Symptoms Psychiatric: denies: Anxiety, Depression - Risk Factors Known Risk Factors: Yes: Age, Gender, Hypercholesterolemia, Hypertension, Prior LA /Emb Stroke. No: Physical Inactivity (pt walks 3 miles daily) Vital Signs: Vital Signs Temperature 98.3 F 12/17/16 09:00 Pulse Rate 82 12/17/16 09:00 Respiratory Rate 18 12/17/16 09:00 Blood Pressure 150/90 12/17/16 09:00 O2 Sat by Pulse Oximetry (%) 94 L 12/17/16 09:00 Constitutional: Yes: Anxious Eyes: Yes: WNL HENT: Yes: WNL Neck: Yes: WNL Respiratory: Yes: WNL Gastrointestinal: Yes: WNL Renal/: No: Anuria Cardiovascular: Yes: WNL JVD: No Carotid Bruit: No PMI: Non-Displaced Heart Sounds: Yes: S1, S2, S4 Musculoskeletal: Yes: WNL Extremities: Yes: WNL Edema: No Peripheral Pulses WNL: Yes Integumentary: Yes: WNL Neurological: Yes: Facial Droop ...Motor Strength: WNL Psychiatric: Yes: WNL - Other Data Labs, Other Data: CBC, BMP 12/17/16 05:35 12/17/16 05:35 INR, PTT INR 1.04 (0.82-1.09) 12/15/16 19:10 Abnormal Lab Results 12/17/16 12/17/16 05:35 05:35 WBC 20.2 H D Chloride 108 H BUN 33 H Calcium 8.2 L Ejection Fraction %: LVEF > or = 40 % Imaging - Results Chest X-ray: Image Reviewed (no acute pathology) EKG: Image Reviewed (NSR; normal study) Other: Image Reviewed (telemetry: NSR; frequent APCs) Problem List - Problems (1) Facial droop Code(s): R29.810 - FACIAL WEAKNESS (2) HTN (hypertension) Assessment/Plan: On metoprolol (would change to 24 hour coverage with either metoprolol tartrate bid or metoprolol ER qd). Add ACEI (HTN; DM). Code(s): I10 - ESSENTIAL (PRIMARY) HYPERTENSION (3) Hx of liver transplant Code(s): Z94.4 - LIVER TRANSPLANT STATUS (4) Slurred speech Assessment/Plan: cerebral infarct. f/u with neurologist. Code(s): R47.81 - SLURRED SPEECH (5) Cerebral infarct Assessment/Plan: multiple cortical infarcts. Discussed pt with his private technical solutions consultant, Dr. Paredes. Hx [place]-->coronary stent in 2012. Pt is on ASA and clopidogrel. Pt will be followed closely as an outpatient by his team; a HARSHAL will be done in the near future, and long-term monitoring to r/o AF will be started. Code(s): I63.9 - CEREBRAL INFARCTION, UNSPECIFIED (6) Hyperlipidemia Assessment/Plan: agree with high-dose atorvastatin. Code(s): E78.5 - HYPERLIPIDEMIA, UNSPECIFIED (7) Diabetes Assessment/Plan: Recommend starting an SGLT-2 inhibitor, e.g. Jardience, because of its potential for lowering cardiac events and overeall mortality. Code(s): E11.9 - TYPE 2 DIABETES MELLITUS WITHOUT COMPLICATIONS
--- NOTE | 2016-12-17 15:30 | PN ---
Teaching Attending Note Name of Resident: Deena Kim ATTENDING PHYSICIAN STATEMENT I saw and evaluated the patient. I reviewed the resident's note and discussed the case with the resident. I agree with the resident's findings and plan as documented. SUBJECTIVE: Speech is improving. No new complaints. OBJECTIVE: Vital Signs Period Temp Pulse Resp BP Sys/Fraga Pulse Ox Last 24 Hr 97.9 F-99.0 F 74-92 16-18 148-162/82-90 94-95 HEART: S1 S2, RRR LUNGS: Clear ABDOMEN: Soft, non-tender, non-distended, normal BS EXTREMITIES: No edema NEUROLOGICAL: Alert, oriented, left facial droop, speech clear ASSESSMENT AND PLAN: This is a 66 year old man with a history of a liver transplant, HTN, type 2 DM, CAD who presented to the ER with slurred speech and left facial droop. 1. 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 Leukocytosis - Possibly steroid-induced, reactive - No evidence of infection 3. HTN - Continue Toprol XL 4. Type 2 DM - Continue Novolog sliding scale 5. CAD, history of [place], stent - Continue aspirin, Plavix, Toprol XL, Lipitor 4. History of liver transplant - Continue Cyclosporine, Actigall
[2016-12-17] MEDS: METOPROLOL SUCCINATE 50 MG TAB.SR.24H (FP) PO SCH (16:58)
[2016-12-17] MEDS ORDERED: ATORVASTATIN CA 80 MG TABLET (FP) PO SCH (22:00)
[2016-12-18] MEDS ORDERED: PT OWN MED DRAWER 7, Y5N ONE (01:53)
[2016-12-18] MEDS: INSULIN SLIDING SCALE (NOVOLOG) 1 VIAL SQ SCH (06:17)
[2016-12-18 07:15] LABS: MCH 32.1 pg (25.7-33.7); MCHC 33.6 g/dl (32.0-35.9); MEAN CELL VOLUME 95.6 fl (80-96); MEAN PLT VOLUME 9.8 fl (7.5-11.1); PLATELET COUNT 192 K/MM3 (134-434); RDW 12.9 % (11.9-15.9); WHITE BLOOD COUNT 12.9 K/mm3 (4.0-10.0)
[2016-12-18 07:17] LABS: CALCIUM 8.7 mg/dL (8.5-10.1); COCKROFT - GAULT 71.09
--- NOTE | 2016-12-18 07:39 | DS ---
Physical Exam: SUBJECTIVE: Patient seen and examined by me at bedside. No overnight events noted. Patient reports feeling much better and that his speech continues to improve. He offers no complaints. Otherwise, patient denies fever, chills, nausea, vomiting, abdominal pain, chest pain, shortness of breath, difficulty walking, weakness, tingling, dizziness, headaches. OBJECTIVE: Vital Signs Period Temp Pulse Resp BP Sys/Fraga Pulse Ox Last 24 Hr 97.9 F-99.8 F 57-82 16-18 134-156/82-93 94-94 PHYSICAL EXAM GENERAL: The patient is awake, alert, and fully oriented, in no acute distress. HEAD: Normal with no signs of trauma. EYES: PERRL, extraocular movements intact, sclera anicteric, conjunctiva clear. ENT: oropharynx clear without exudates, moist mucous membranes. LUNGS: Breath sounds equal, clear to auscultation bilaterally, no wheezes, no crackles, no accessory muscle use. HEART: Regular rate and rhythm, S1, S2 without murmur, rub or gallop. ABDOMEN: Soft, nontender, nondistended, normoactive bowel sounds, no guarding. EXTREMITIES: No Peripheral edema. NEUROLOGICAL: Left facial droop. Dysarthia (improving) Motor strength 5/5 throughout, sensory intact. Slurred Speech. CN II,III,IV,V, intact. LABS Laboratory Results - last 24 hr 12/17/16 12/17/16 12/17/16 05:35 12:26 16:37 WBC RBC Hgb Hct MCV MCHC RDW Plt Count MPV Neutrophils % 77.0 Lymphocytes % 8.0 D Monocytes % 5.0 D Differential Comment Manual diff done Platelet Estimate Adequate Sodium Potassium Chloride Carbon Dioxide Anion Gap BUN Creatinine POC Glucometer 147 143 Random Glucose Calcium 12/17/16 12/18/16 12/18/16 20:26 05:38 05:38 WBC 12.9 H D RBC 4.45 Hgb 14.3 Hct 42.5 MCV 95.6 MCHC 33.6 RDW 12.9 Plt Count 192 MPV 9.8 Neutrophils % Lymphocytes % Monocytes % Differential Comment Platelet Estimate Sodium 142 Potassium 3.9 Chloride 105 Carbon Dioxide 27 Anion Gap 10 BUN 28 H Creatinine 1.0 POC Glucometer 194 Random Glucose 107 H Calcium 8.7 12/18/16 05:40 WBC RBC Hgb Hct MCV MCHC RDW Plt Count MPV Neutrophils % Lymphocytes % Monocytes % Differential Comment Platelet Estimate Sodium Potassium Chloride Carbon Dioxide Anion Gap BUN Creatinine POC Glucometer 111 Random Glucose Calcium IMAGES: Head CT (12/15/16): No acute infarct or hemorrhage Chest X-ray (12/17/16): Negative for pneumonia, CHF, atelectasis, pleural effusions or pneumothorax Carotid Doppler (12/15/16): No evidence of significant stenosis ECHO (12/16/16): No abnormal wall motions Modified Barium Swallow (12/16/16): No aspiration noted BRAIN MRI (12/16/16): Moderate atrophy and extensive chronic microvascular ischemic changes. Multiple acute/subacute focal infarcts in the right insular and subinsular cortex, right frontal, parietal and occipital lobe. HOSPITAL COURSE: Patient is a 66 year old male with a PMHx of NIDDMII, HTN, CAD, Liver transplant who presented with life sided facial droop and dysarthria. Patient was brought in within 45 minutes and was seen by Neurologist. Alteplase was not given as neurologist thought it might be [place] Palsy due to current symptoms. Patient did admit to having an upper respiratory infection two weeks prior. Patient denied any body weakness, tingling, abnormal gait, or visual changes. Stroke Protocol was initiated and patient was given full dose ASA and Plavix. Head CT was done and it was negative for acute pathology. Carotid doppler and ECHO showed no significant pathology. Patient placed on cardiac monitoring for monitoring of arrhythmia's. Patient was then placed on Prednisone and Valacyclovir for further management of [place] Palsy. Brain MRI was taken and patient was found to have multiple acute/subacute infarcts. However, patient's speech significantly improved and patient had no difficulty ambulating. Cardiac monitoring revealed no arrhythmias or abnormalities. Neurology recommended further work up with a HARSHAL and cardiac consult placed. Patient and patient's family would rather have the HARSHAL done as outpatient with their family heel room supervisor in [place]. Cardiology at the hospital cleared patient and explained that patient may follow up with his heel room supervisor for near future HARSHAL and holter monitoring. Patient's heel room supervisor was contacted, Dr. Paredes, and will be followed as outpatient with a HARSHAL to be done and nursing home monitoring to rule out A.fib. Patient has an appointment set tomorrow afternoon at the heel room supervisor office. Patient stable for discharge and will be picked up by his . Date of Admission:12/15/16 Date of Discharge: 12/18/16 Minutes to complete discharge: 35 Discharge Summary Reason For Visit: FACIAL DROOP, SLURRED SPEECH Current Active Problems Yoder's palsy (Acute) CAD (coronary artery disease) (Acute) Cerebral infarct (Acute) Diabetes (Acute) Facial droop (Acute) HTN (hypertension) (Acute) Hx of liver transplant (Acute) Hyperlipidemia (Acute) Slurred speech (Acute) Condition: Stable - Instructions Diet, Activity, Other Instructions: -You were admitted for an acute stroke, which caused you to have the speech impairment and facial droop -You are set up for an appointment with your heel room supervisor tomorrow (12/19/16). Please follow up -You will likely require speech therapy to help improve your speech -You will need to continue the Aspirin and Plavix with current dosage -You will need to continue your statin. Please confirm with your heel room supervisor which dose he wants you on. You will need to follow up labs for liver functions and muscle enzymes. -You will need to follow up with your primary care physician within a week -You may resume your regular diet and daily activities -If you have any worsening symptoms, please return to the emergency department Referrals: Chito Martino [Primary Care Provider] - Disposition: HOME - Home Medications Comprehensive Discharge Medication List: Ambulatory Orders Alendronate Na [Fosamax] 70 mg PO DAILY 12/15/16 Aspirin [ASA -] 81 mg PO DAILY 12/15/16 Cyclosporine 75 mg PO DAILY 12/15/16 Glimepiride 2 mg PO DAILY 12/15/16 Metoprolol Tartrate [Lopressor -] 25 mg PO DAILY 12/15/16 Ursodiol 500 mg PO DAILY 12/15/16 This patient is new to me today: No Emergency Visit: Yes ED Registration Date: 12/15/16 Care time: The patient presented to the Emergency Department on the above date and was hospitalized for further evaluation of their emergent condition. Critical Care patient: No - Discharge Referral Referred to [facility] Med [facility] No
[2016-12-18 09:41] VITALS: BP 141/92; PULSE 77; TEMP 98.4
[2016-12-18] MEDS: METOPROLOL SUCCINATE 50 MG TAB.SR.24H (FP) PO SCH (09:42)
[2016-12-18] MEDS: CLOPIDOGREL BISULFATE 75 MG TABLET (FP) PO SCH (09:42)
[2016-12-18] MEDS: cycloSPORINE MICROEMULSION (MODIFIED) 25 MG CAPSULE PO SCH (09:43)
[2016-12-18] MEDS ORDERED: ASPIRIN 81 MG CHEWABLE TABLETS PO SCH (10:00)
[2016-12-18] MEDS: URSODIOL 300 MG CAPSULE PO SCH (10:38)
--- NOTE | 2016-12-18 11:45 | PN ---
Progress Note, Physician - Objective Vital Signs: Vital Signs Temperature 98.4 F 12/18/16 09:40 Pulse Rate 77 12/18/16 09:40 Respiratory Rate 18 12/18/16 09:40 Blood Pressure 141/92 12/18/16 09:40 O2 Sat by Pulse Oximetry (%) 96 12/18/16 09:00 Eyes: Yes: WNL, Conjunctiva Clear, EOM Intact HENT: Yes: WNL, Atraumatic, Normocephalic Neck: Yes: WNL, Supple, Trachea Midline Cardiovascular: Yes: WNL, Regular Rate and Rhythm Respiratory: Yes: WNL, Regular, CTA Bilaterally Gastrointestinal: Yes: WNL, Normal Bowel Sounds Genitourinary: Yes: WNL Musculoskeletal: Yes: WNL Extremities: Yes: WNL Edema: No Integumentary: Yes: WNL Neurological: Yes: WNL, Alert, Oriented ...Motor Strength: WNL Psychiatric: Yes: WNL Labs: CBC, BMP 12/18/16 05:38 12/18/16 05:38 INR, PTT INR 1.04 (0.82-1.09) 12/15/16 19:10 Assessment/Plan - Problems (1) Facial droop Code(s): R29.810 - FACIAL WEAKNESS (2) HTN (hypertension) Assessment/Plan: On metoprolol (would change to 24 hour coverage with either metoprolol tartrate bid or metoprolol ER qd). Add ACEI (HTN; DM). Code(s): I10 - ESSENTIAL (PRIMARY) HYPERTENSION (3) Hx of liver transplant Code(s): Z94.4 - LIVER TRANSPLANT STATUS (4) Slurred speech Assessment/Plan: cerebral infarct. f/u with neurologist. Code(s): R47.81 - SLURRED SPEECH (5) Cerebral infarct Assessment/Plan: multiple cortical infarcts. Discussed pt with his private parachute accessories attacher, Dr. Paredes. Hx [place]-->coronary stent in 2012. Pt is on ASA and clopidogrel. Pt will be followed closely as an outpatient by his team; a HARSHAL will be done in the near future, and long-term monitoring to r/o AF will be started. Code(s): I63.9 - CEREBRAL INFARCTION, UNSPECIFIED (6) Hyperlipidemia Assessment/Plan: agree with high-dose atorvastatin. Code(s): E78.5 - HYPERLIPIDEMIA, UNSPECIFIED (7) Diabetes Assessment/Plan: Recommend starting an SGLT-2 inhibitor, e.g. Jardience, because of its potential for lowering cardiac events and overeall mortality. Code(s): E11.9 - TYPE 2 DIABETES MELLITUS WITHOUT COMPLICATIONS
--- NOTE | 2016-12-18 13:16 | PN ---
Teaching Attending Note Name of Resident: Deena Kim ATTENDING PHYSICIAN STATEMENT I saw and evaluated the patient. I reviewed the resident's note and discussed the case with the resident. I agree with the resident's findings and plan as documented. SUBJECTIVE: No complaints. OBJECTIVE: Vital Signs Period Temp Pulse Resp BP Sys/Fraga Pulse Ox Last 24 Hr 97.9 F-99.8 F 57-77 16-18 134-156/82-93 94-96 HEART: S1 S2, RRR LUNGS: Clear ABDOMEN: Soft, non-tender, non-distended, normal BS EXTREMITIES: No edema NEUROLOGICAL: Alert, oriented, left facial droop, speech clear ASSESSMENT AND PLAN: This is a 66 year old man with a history of a liver transplant, HTN, type 2 DM, CAD who presented to the ER with slurred speech and left facial droop. 1. 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 Leukocytosis - Improving - Possibly steroid-induced, reactive - No evidence of infection 3. HTN - Continue Toprol XL 4. Type 2 DM - Continue Novolog sliding scale 5. CAD, history of NV, stent - Continue aspirin, Plavix, Toprol XL, Lipitor 6. History of liver transplant - Continue Cyclosporine, Actigall 7. Ok for discharge home today
[2016-12-18 14:17] LABS: CYCLOSPORINE A TROUGH 106 ng/mL (100-400)
== END 2016-12-18 11:13 | disposition home or self-care (01) | DRG 73 ==
LOC: JER 18:51 → EDBD 18:51 → JERBED 20:29 → UNDOADMIN 23:41 → JERBED 23:41 → J4S 12-16 10:49
PROVIDERS: ADMIT Internal Medicine; ATTEND Internal Medicine
DX: G51.0 Bell's palsy (principal); I63.9 Cerebral infarction, unspecified; Z94.4 Liver transplant status; E11.9 Type 2 diabetes mellitus without complications; R47.81 Slurred speech; I25.10 Atherosclerotic heart disease of native coronary artery without angina pectoris; Z95.5 Presence of coronary angioplasty implant and graft; D72.829 Elevated white blood cell count, unspecified; R47.1 Dysarthria and anarthria
CPT/HCPCS: 36415; 70450-TC; 70551-TC; 71010-TC; 74230-TC; 80048; 80053; 80158; 81003; 81015; 82465; 82550; 82553; 83036; 83718; 83721; 84443; 84478; 84484; 85025; 85027; 85610; 85730; 86850; 86900; 86901; 92611-GN; 93005; 93010; 93306-TC; 93880-TC; 97116-GP; 97161; 99285-25